=== PATIENT | male | born 1970 | race Two or more races ===

== ENCOUNTER 2020-06-19 01:05 | Inpatient (IN) | payer BC ==
[2020-06-19] VITALS (8 sets, daily range): BP systolic 114–161; BP diastolic 68–79
[~2020-06-19] VITALS: Ht 185.4 cm; Wt 102.0 kg
[2020-06-19] MEDS ORDERED: DEXTROSE 50% 25 GM / 50ML DISP.SYRIN. IV PRN (02:45)
[2020-06-19] MEDS ORDERED: ACETAMINOPHEN 325 MG TABLET. PO PRN (02:45)
[2020-06-19] MEDS ORDERED: 0.9 % SODIUM CHLORIDE 10 ML DISP.SYRIN. IV PRN (02:45)
[2020-06-19] MEDS ORDERED: METF500T16 PO (02:51)
[2020-06-19] MEDS: IV NORMAL SALINE 1000ML BAG 1,000 ML IV SCH ×3 (05:21→20:30)
[2020-06-19 07:00] LABS: BASO % 0 % (0-3); EOS % 0 % (0-3); HEMATOCRIT 43.2 % (39.0-53.0); LYMPH # 1.5 x10^3/uL (1.0-4.8); LYMPH % 27 % (24-48); MEAN CORPUSCULAR HEMOGLOBIN 31 pg (25-35); MEAN CORPUSCULAR HGB CONC 35 g/dL (31-37); MEAN CORPUSCULAR VOLUME 89 fL (79-100); MONO # 0.3 x10^3/uL (0.0-1.1); MONO % 6 % (0-9); NEUT # 3.8 x10^3/uL (1.8-7.7); NEUT % 67 % (31-73); PLATELET COUNT 146 x10^3/uL (140-400); RED BLOOD COUNT 4.85 x10^6/uL (4.30-5.70); RED CELL DISTRIBUTION WIDTH 12.3 % (11.5-14.5); WHITE BLOOD COUNT 5.7 x10^3/uL (4.0-11.0)
[2020-06-19 07:28] LABS: ALBUMIN 3.4 g/dL (3.4-5.0); ALBUMIN/GLOBULIN RATIO 0.8 (1.0-1.7); CALCIUM 8.6 mg/dL (8.5-10.1); GFR 78.8; MAGNESIUM 2.5 mg/dL (1.8-2.4); POTASSIUM 3.9 mmol/L (3.5-5.1); TOTAL BILIRUBIN 0.6 mg/dL (0.2-1.0); TOTAL PROTEIN 7.6 g/dL (6.4-8.2)
[2020-06-19] MEDS: INSULIN LISPRO 300 UNITS/3 ML VIAL. SQ SCH ×5 (07:30→21:00)
[2020-06-19] MEDS: cefTRIAXone IV Push 1 GM VIAL. IVP SCH (09:35)
[2020-06-19] MEDS: AZITHROMYCIN 500 MG in IV NORMAL SALINE 250ML 250 ML IV SCH (09:38)
[2020-06-19] MEDS: DEXAMETHASONE 4 MG TABLET PO SCH (09:38)
--- NOTE | 2020-06-19 14:06 | PDOC1 ---
History and Physical Date of Service: DOS: DATE: 06/19/20 TIME: 14:01 Allergies: Allergies: Coded Allergies: No Known Allergies (Verified Allergy, Unknown, 06/19/20) Current Medications: Current Medications Current Medications Sodium Chloride (Normal Saline Flush) 3 ml QSHIFT PRN IV AFTER MEDS AND BLOOD DRAWS; Start 06/19/20 at 02:45 Sodium Chloride 1,000 ml @ 100 mls/hr Q10H IV Last administered on 06/19/20at 05:21; Start 06/19/20 at 03:00 Acetaminophen (Tylenol) 650 mg PRN Q4HRS PRN PO TEMP OVER 100.4F OR MILD PAIN; Start 06/19/20 at 02:45 Ceftriaxone Sodium (Rocephin) 1 gm Q24H IVP Last administered on 06/19/20at 09:35; Start 06/19/20 at 09:00 Azithromycin 500 mg/Sodium Chloride 250 ml @ 250 mls/hr Q24H IV Last administered on 06/19/20at 09:38; Start 06/19/20 at 09:00 Dexamethasone (Decadron) 8 mg DAILYWBKFT PO Last administered on 06/19/20at 09:38; Start 06/19/20 at 08:00 Insulin Human Lispro (HumaLOG) 0-5 UNITS QIDACHS SQ Last administered on 06/19/20at 13:10; Start 06/19/20 at 07:30 Dextrose (Dextrose 50%-Water Syringe) 12.5 gm PRN Q15MIN PRN IV SEE COMMENTS; Start 06/19/20 at 02:45 Active Scripts Active Reported Metformin Hcl 500 Mg Tablet 500 Mg PO BIDWMEALS ROS: Review of Systems Review of System REVIEW OF SYSTEMS: GENERAL: Denies weakness SKIN: No bruising, hair changes or rashes. EYES: No blurred, double or loss of vision. NOSE AND THROAT: No history of nosebleeds, hoarseness or sore throat. HEART: No history of palpitations, chest pain or shortness of breath on exertion. LUNGS: Denies cough, hemoptysis, wheezing or shortness of breath. GASTROINTESTINAL: Denies changes in appetite, nausea, vomiting, diarrhea or constipation. GENITOURINARY: No history of frequency, urgency, hesitancy or nocturia. NEUROLOGIC: Denies history of numbness, tingling, or tremor. PSYCHIATRIC: No history of panic, anxiety or depression. ENDOCRINE: No history of heat or cold intolerance, polyuria or polydipsia. EXTREMITIES: Denies joint pain, pain on walking or stiffness. Physical Exam: Vital Signs: Vital Signs Date Time Temp Pulse Resp B/P (MAP) Pulse Ox O2 Delivery O2 Flow Rate FiO2 06/19/20 10:47 98.5 94 19 148/72 (97) 95 Nasal Cannula 2.0 98.5 Physcial Exam: GEN: No apparent distress. Alert and oriented HEENT: Normal cephalic, atraumatic, external auditory canals are patent EYES: Extraocular muscles are intact, pupil are equally round and reactive to light and accommodation MUSCULOSKELETAL: Well developed , well nourished, good range of motion ENDOCRINE: No thyromegaly was palpated LYMPHATICS: No cervical chain or axillary nodes were noted HEMATOPOIETIC: No bruising NECK: Supple, no JVD, no thyromegaly was noted LUNGS: Clear to auscultation in all lung pop without rhonchi or wheezing HEART: RRR, S!, S2 present. Peripheral pulses intact, no obvious murmurs noted ABDOMEN: Soft, nontender. Positive bowel sounds, no organomegaly, normal bowel sounds EXTREMITIES: Without clubbing, cyanosis, or edema. Pedal pulses intact. Negative Homans sign NEUROLOGIC: Normal speech and tone. A&O x 3, moves all extremities, no obvious focal deficits PSYCHIATRIC: Normal affect, normal mood. Stable SKIN: No ulcerations or rashes, good skin turgor, no jaundice VASCULAR: Good capillary refill, neurovascular bundle appears to be intact Labs: Labs: Laboratory Tests Test 06/19/20 06:40 06/19/20 08:19 06/19/20 11:22 White Blood Count 5.7 x10^3/uL (4.0-11.0) Red Blood Count 4.85 x10^6/uL (4.30-5.70) Hemoglobin 15.0 g/dL (13.0-17.5) Hematocrit 43.2 % (39.0-53.0) Mean Corpuscular Volume 89 fL (79-100) Mean Corpuscular Hemoglobin 31 pg (25-35) Mean Corpuscular Hemoglobin Concent 35 g/dL (31-37) Red Cell Distribution Width 12.3 % (11.5-14.5) Platelet Count 146 x10^3/uL (140-400) Neutrophils (%) (Auto) 67 % (31-73) Lymphocytes (%) (Auto) 27 % (24-48) Monocytes (%) (Auto) 6 % (0-9) Eosinophils (%) (Auto) 0 % (0-3) Basophils (%) (Auto) 0 % (0-3) Neutrophils # (Auto) 3.8 x10^3/uL (1.8-7.7) Lymphocytes # (Auto) 1.5 x10^3/uL (1.0-4.8) Monocytes # (Auto) 0.3 x10^3/uL (0.0-1.1) Eosinophils # (Auto) 0.0 x10^3/uL (0.0-0.7) Basophils # (Auto) 0.0 x10^3/uL (0.0-0.2) Sodium Level 137 mmol/L (136-145) Potassium Level 3.9 mmol/L (3.5-5.1) Chloride Level 99 mmol/L (98-107) Carbon Dioxide Level 30 mmol/L (21-32) Anion Gap 8 (6-14) Blood Urea Nitrogen 17 mg/dL (8-26) Creatinine 1.0 mg/dL (0.7-1.3) Estimated GFR (Cockcroft-Gault) 78.8 BUN/Creatinine Ratio 17 (6-20) Glucose Level 181 mg/dL (70-99) Calcium Level 8.6 mg/dL (8.5-10.1) Magnesium Level 2.5 mg/dL (1.8-2.4) Total Bilirubin 0.6 mg/dL (0.2-1.0) Aspartate Amino Transf (AST/SGOT) 35 U/L (15-37) Alanine Aminotransferase (ALT/SGPT) 53 U/L (16-63) Alkaline Phosphatase 166 U/L (46-116) Total Protein 7.6 g/dL (6.4-8.2) Albumin 3.4 g/dL (3.4-5.0) Albumin/Globulin Ratio 0.8 (1.0-1.7) Glucose (Fingerstick) 160 mg/dL (70-99) 185 mg/dL (70-99) Laboratory Tests Test 06/19/20 06:40 06/19/20 08:19 06/19/20 11:22 White Blood Count 5.7 x10^3/uL (4.0-11.0) Red Blood Count 4.85 x10^6/uL (4.30-5.70) Hemoglobin 15.0 g/dL (13.0-17.5) Hematocrit 43.2 % (39.0-53.0) Mean Corpuscular Volume 89 fL (79-100) Mean Corpuscular Hemoglobin 31 pg (25-35) Mean Corpuscular Hemoglobin Concent 35 g/dL (31-37) Red Cell Distribution Width 12.3 % (11.5-14.5) Platelet Count 146 x10^3/uL (140-400) Neutrophils (%) (Auto) 67 % (31-73) Lymphocytes (%) (Auto) 27 % (24-48) Monocytes (%) (Auto) 6 % (0-9) Eosinophils (%) (Auto) 0 % (0-3) Basophils (%) (Auto) 0 % (0-3) Neutrophils # (Auto) 3.8 x10^3/uL (1.8-7.7) Lymphocytes # (Auto) 1.5 x10^3/uL (1.0-4.8) Monocytes # (Auto) 0.3 x10^3/uL (0.0-1.1) Eosinophils # (Auto) 0.0 x10^3/uL (0.0-0.7) Basophils # (Auto) 0.0 x10^3/uL (0.0-0.2) Sodium Level 137 mmol/L (136-145) Potassium Level 3.9 mmol/L (3.5-5.1) Chloride Level 99 mmol/L (98-107) Carbon Dioxide Level 30 mmol/L (21-32) Anion Gap 8 (6-14) Blood Urea Nitrogen 17 mg/dL (8-26) Creatinine 1.0 mg/dL (0.7-1.3) Estimated GFR (Cockcroft-Gault) 78.8 BUN/Creatinine Ratio 17 (6-20) Glucose Level 181 mg/dL (70-99) Calcium Level 8.6 mg/dL (8.5-10.1) Magnesium Level 2.5 mg/dL (1.8-2.4) Total Bilirubin 0.6 mg/dL (0.2-1.0) Aspartate Amino Transf (AST/SGOT) 35 U/L (15-37) Alanine Aminotransferase (ALT/SGPT) 53 U/L (16-63) Alkaline Phosphatase 166 U/L (46-116) Total Protein 7.6 g/dL (6.4-8.2) Albumin 3.4 g/dL (3.4-5.0) Albumin/Globulin Ratio 0.8 (1.0-1.7) Glucose (Fingerstick) 160 mg/dL (70-99) 185 mg/dL (70-99) Justifications for Admission Other Justification ELIJAH NAVARRO MD Jun 19, 2020 14:06
--- NOTE | 2020-06-19 14:13 | PDOC1 ---
History and Physical Date of Service: DOS: DATE: 06/19/20 TIME: 14:08 Chief Complaint: Chief Complain: COVID positive and shortness of breath History of Present Illness: HPI: Patient is a 50-year-old male with past medical history of diabetes mellitus who presents with a one-week history of COVID infection that was positive from [facility] last Monday on 06/12/2020. Patient went to [facility] to be evaluated because in the last few days where he remained quarantined he was becoming more lethargic and short of breath. Patient was concerned because he did not have any medical equipment to measure his oxygen saturation therefore he decided to go to the emergency room. After he was evaluated at [place], he was told he was going to be transferred to [facility] because they did not have a COVID unit there. Review of the chart showed that the patient did have labs drawn and CT imaging done. Labs did show elevated d-dimer and a CT scan showing multifocal consolidation concerning for pneumonia versus typical COVID pneumonia presentation. Patient seen and examined bedside upon arrival and he was saturating 94% on 2 L nasal cannula. Patient was not having any shortness of breath or accessory muscle use during my interview. Denies chest pain, abdominal pain, bloody stools, or constipation. Patient did endorse some diarrhea that has resolved a few days ago. Patient also endorses that he did have COVID contact with his sister who was actually recently admitted at [facility] for COVID. Past Medical/Surgical History: PMH/PSH: Diabetes mellitus type 2 Allergies: Allergies: Coded Allergies: No Known Allergies (Verified Allergy, Unknown, 06/19/20) Family History: Family History: Reviewed and none reported Social History: Social History: Denies tobacco, drugs, alcohol abuse. Current Medications: Current Medications Current Medications Sodium Chloride (Normal Saline Flush) 3 ml QSHIFT PRN IV AFTER MEDS AND BLOOD DRAWS; Start 06/19/20 at 02:45 Sodium Chloride 1,000 ml @ 100 mls/hr Q10H IV Last administered on 06/19/20at 05:21; Start 06/19/20 at 03:00 Acetaminophen (Tylenol) 650 mg PRN Q4HRS PRN PO TEMP OVER 100.4F OR MILD PAIN; Start 06/19/20 at 02:45 Ceftriaxone Sodium (Rocephin) 1 gm Q24H IVP Last administered on 06/19/20at 09:35; Start 06/19/20 at 09:00 Azithromycin 500 mg/Sodium Chloride 250 ml @ 250 mls/hr Q24H IV Last administered on 06/19/20at 09:38; Start 06/19/20 at 09:00 Dexamethasone (Decadron) 8 mg DAILYWBKFT PO Last administered on 06/19/20at 09:38; Start 06/19/20 at 08:00 Insulin Human Lispro (HumaLOG) 0-5 UNITS QIDACHS SQ Last administered on 06/19/20at 13:10; Start 06/19/20 at 07:30 Dextrose (Dextrose 50%-Water Syringe) 12.5 gm PRN Q15MIN PRN IV SEE COMMENTS; Start 06/19/20 at 02:45 Active Scripts Active Reported Metformin Hcl 500 Mg Tablet 500 Mg PO BIDWMEALS ROS: Review of Systems Review of System REVIEW OF SYSTEMS: GENERAL: Denies weakness SKIN: No bruising, hair changes or rashes. EYES: No blurred, double or loss of vision. NOSE AND THROAT: No history of nosebleeds, hoarseness or sore throat. HEART: No history of palpitations, chest pain or shortness of breath on exertion. LUNGS: Denies cough, hemoptysis, wheezing or shortness of breath. GASTROINTESTINAL: Denies changes in appetite, nausea, vomiting, diarrhea or constipation. GENITOURINARY: No history of frequency, urgency, hesitancy or nocturia. NEUROLOGIC: Denies history of numbness, tingling, or tremor. PSYCHIATRIC: No history of panic, anxiety or depression. ENDOCRINE: No history of heat or cold intolerance, polyuria or polydipsia. EXTREMITIES: Denies joint pain, pain on walking or stiffness. Physical Exam: Vital Signs: Vital Signs Date Time Temp Pulse Resp B/P (MAP) Pulse Ox O2 Delivery O2 Flow Rate FiO2 06/19/20 10:47 98.5 94 19 148/72 (97) 95 Nasal Cannula 2.0 98.5 Physcial Exam: GEN: No apparent distress. Alert and oriented HEENT: Normal cephalic, atraumatic, external auditory canals are patent EYES: Extraocular muscles are intact, pupil are equally round and reactive to light and accommodation MUSCULOSKELETAL: Well developed , well nourished, good range of motion ENDOCRINE: No thyromegaly was palpated LYMPHATICS: No cervical chain or axillary nodes were noted HEMATOPOIETIC: No bruising NECK: Supple, no JVD, no thyromegaly was noted LUNGS: Clear to auscultation in all lung pop without rhonchi or wheezing HEART: RRR, S!, S2 present. Peripheral pulses intact, no obvious murmurs noted ABDOMEN: Soft, nontender. Positive bowel sounds, no organomegaly, normal bowel sounds EXTREMITIES: Without clubbing, cyanosis, or edema. Pedal pulses intact. Negative Homans sign NEUROLOGIC: Normal speech and tone. A&O x 3, moves all extremities, no obviou s focal deficits PSYCHIATRIC: Normal affect, normal mood. Stable SKIN: No ulcerations or rashes, good skin turgor, no jaundice VASCULAR: Good capillary refill, neurovascular bundle appears to be intact Labs: Labs: Laboratory Tests Test 06/19/20 06:40 06/19/20 08:19 06/19/20 11:22 White Blood Count 5.7 x10^3/uL (4.0-11.0) Red Blood Count 4.85 x10^6/uL (4.30-5.70) Hemoglobin 15.0 g/dL (13.0-17.5) Hematocrit 43.2 % (39.0-53.0) Mean Corpuscular Volume 89 fL (79-100) Mean Corpuscular Hemoglobin 31 pg (25-35) Mean Corpuscular Hemoglobin Concent 35 g/dL (31-37) Red Cell Distribution Width 12.3 % (11.5-14.5) Platelet Count 146 x10^3/uL (140-400) Neutrophils (%) (Auto) 67 % (31-73) Lymphocytes (%) (Auto) 27 % (24-48) Monocytes (%) (Auto) 6 % (0-9) Eosinophils (%) (Auto) 0 % (0-3) Basophils (%) (Auto) 0 % (0-3) Neutrophils # (Auto) 3.8 x10^3/uL (1.8-7.7) Lymphocytes # (Auto) 1.5 x10^3/uL (1.0-4.8) Monocytes # (Auto) 0.3 x10^3/uL (0.0-1.1) Eosinophils # (Auto) 0.0 x10^3/uL (0.0-0.7) Basophils # (Auto) 0.0 x10^3/uL (0.0-0.2) Sodium Level 137 mmol/L (136-145) Potassium Level 3.9 mmol/L (3.5-5.1) Chloride Level 99 mmol/L (98-107) Carbon Dioxide Level 30 mmol/L (21-32) Anion Gap 8 (6-14) Blood Urea Nitrogen 17 mg/dL (8-26) Creatinine 1.0 mg/dL (0.7-1.3) Estimated GFR (Cockcroft-Gault) 78.8 BUN/Creatinine Ratio 17 (6-20) Glucose Level 181 mg/dL (70-99) Calcium Level 8.6 mg/dL (8.5-10.1) Magnesium Level 2.5 mg/dL (1.8-2.4) Total Bilirubin 0.6 mg/dL (0.2-1.0) Aspartate Amino Transf (AST/SGOT) 35 U/L (15-37) Alanine Aminotransferase (ALT/SGPT) 53 U/L (16-63) Alkaline Phosphatase 166 U/L (46-116) Total Protein 7.6 g/dL (6.4-8.2) Albumin 3.4 g/dL (3.4-5.0) Albumin/Globulin Ratio 0.8 (1.0-1.7) Glucose (Fingerstick) 160 mg/dL (70-99) 185 mg/dL (70-99) Laboratory Tests Test 06/19/20 06:40 06/19/20 08:19 06/19/20 11:22 White Blood Count 5.7 x10^3/uL (4.0-11.0) Red Blood Count 4.85 x10^6/uL (4.30-5.70) Hemoglobin 15.0 g/dL (13.0-17.5) Hematocrit 43.2 % (39.0-53.0) Mean Corpuscular Volume 89 fL (79-100) Mean Corpuscular Hemoglobin 31 pg (25-35) Mean Corpuscular Hemoglobin Concent 35 g/dL (31-37) Red Cell Distribution Width 12.3 % (11.5-14.5) Platelet Count 146 x10^3/uL (140-400) Neutrophils (%) (Auto) 67 % (31-73) Lymphocytes (%) (Auto) 27 % (24-48) Monocytes (%) (Auto) 6 % (0-9) Eosinophils (%) (Auto) 0 % (0-3) Basophils (%) (Auto) 0 % (0-3) Neutrophils # (Auto) 3.8 x10^3/uL (1.8-7.7) Lymphocytes # (Auto) 1.5 x10^3/uL (1.0-4.8) Monocytes # (Auto) 0.3 x10^3/uL (0.0-1.1) Eosinophils # (Auto) 0.0 x10^3/uL (0.0-0.7) Basophils # (Auto) 0.0 x10^3/uL (0.0-0.2) Sodium Level 137 mmol/L (136-145) Potassium Level 3.9 mmol/L (3.5-5.1) Chloride Level 99 mmol/L (98-107) Carbon Dioxide Level 30 mmol/L (21-32) Anion Gap 8 (6-14) Blood Urea Nitrogen 17 mg/dL (8-26) Creatinine 1.0 mg/dL (0.7-1.3) Estimated GFR (Cockcroft-Gault) 78.8 BUN/Creatinine Ratio 17 (6-20) Glucose Level 181 mg/dL (70-99) Calcium Level 8.6 mg/dL (8.5-10.1) Magnesium Level 2.5 mg/dL (1.8-2.4) Total Bilirubin 0.6 mg/dL (0.2-1.0) Aspartate Amino Transf (AST/SGOT) 35 U/L (15-37) Alanine Aminotransferase (ALT/SGPT) 53 U/L (16-63) Alkaline Phosphatase 166 U/L (46-116) Total Protein 7.6 g/dL (6.4-8.2) Albumin 3.4 g/dL (3.4-5.0) Albumin/Globulin Ratio 0.8 (1.0-1.7) Glucose (Fingerstick) 160 mg/dL (70-99) 185 mg/dL (70-99) Images: Images All images were reviewed please see paper charts for details Assessment/Plan Assessment/Plan Acute hypoxic respiratory failure COVID positive pneumonia Hypomagnesemia Admit to medicine for further management Continue IV empiric antibiotics ID consult Pulmonology consult Continue IV steroids We will follow math+ protocol for COVID Lovenox for DVT prophylaxis ADA diet Full code Discussed with RN and SW Disposition inpatient care as above Surrogate decision maker is Justifications for Admission Other Justification ELIJAH NAVARRO MD Jun 19, 2020 14:13
--- NOTE | 2020-06-19 17:01 | NUR ---
SW following. Spoke with RN and reviewed chart. Pt from home. Pt currently on 2l 02, IV Zithromax, IV Rocephin, ADA diet. Pt COVID pending so SW called into pt's room but there was no answer. SW unsure if pt has home 02. SW following for discharge planning.
--- NOTE | 2020-06-19 17:27 | PDOC ---
PULMONARY PROGRESS NOTES DATE: 06/19/20 TIME: 17:26 Vitals Vital Signs Date Time Temp Pulse Resp B/P (MAP) Pulse Ox O2 Delivery O2 Flow Rate FiO2 06/19/20 14:39 98.3 91 18 126/77 (93) 92 Nasal Cannula 2.0 98.3 Labs Laboratory Tests Test 06/19/20 06:40 06/19/20 08:19 06/19/20 11:22 06/19/20 16:00 White Blood Count 5.7 x10^3/uL (4.0-11.0) Red Blood Count 4.85 x10^6/uL (4.30-5.70) Hemoglobin 15.0 g/dL (13.0-17.5) Hematocrit 43.2 % (39.0-53.0) Mean Corpuscular Volume 89 fL (79-100) Mean Corpuscular Hemoglobin 31 pg (25-35) Mean Corpuscular Hemoglobin Concent 35 g/dL (31-37) Red Cell Distribution Width 12.3 % (11.5-14.5) Platelet Count 146 x10^3/uL (140-400) Neutrophils (%) (Auto) 67 % (31-73) Lymphocytes (%) (Auto) 27 % (24-48) Monocytes (%) (Auto) 6 % (0-9) Eosinophils (%) (Auto) 0 % (0-3) Basophils (%) (Auto) 0 % (0-3) Neutrophils # (Auto) 3.8 x10^3/uL (1.8-7.7) Lymphocytes # (Auto) 1.5 x10^3/uL (1.0-4.8) Monocytes # (Auto) 0.3 x10^3/uL (0.0-1.1) Eosinophils # (Auto) 0.0 x10^3/uL (0.0-0.7) Basophils # (Auto) 0.0 x10^3/uL (0.0-0.2) Sodium Level 137 mmol/L (136-145) Potassium Level 3.9 mmol/L (3.5-5.1) Chloride Level 99 mmol/L (98-107) Carbon Dioxide Level 30 mmol/L (21-32) Anion Gap 8 (6-14) Blood Urea Nitrogen 17 mg/dL (8-26) Creatinine 1.0 mg/dL (0.7-1.3) Estimated GFR (Cockcroft-Gault) 78.8 BUN/Creatinine Ratio 17 (6-20) Glucose Level 181 mg/dL (70-99) Calcium Level 8.6 mg/dL (8.5-10.1) Magnesium Level 2.5 mg/dL (1.8-2.4) Total Bilirubin 0.6 mg/dL (0.2-1.0) Aspartate Amino Transf (AST/SGOT) 35 U/L (15-37) Alanine Aminotransferase (ALT/SGPT) 53 U/L (16-63) Alkaline Phosphatase 166 U/L (46-116) Total Protein 7.6 g/dL (6.4-8.2) Albumin 3.4 g/dL (3.4-5.0) Albumin/Globulin Ratio 0.8 (1.0-1.7) Glucose (Fingerstick) 160 mg/dL (70-99) 185 mg/dL (70-99) 223 mg/dL (70-99) Laboratory Tests Test 06/19/20 06:40 06/19/20 08:19 06/19/20 11:22 06/19/20 16:00 White Blood Count 5.7 x10^3/uL (4.0-11.0) Red Blood Count 4.85 x10^6/uL (4.30-5.70) Hemoglobin 15.0 g/dL (13.0-17.5) Hematocrit 43.2 % (39.0-53.0) Mean Corpuscular Volume 89 fL (79-100) Mean Corpuscular Hemoglobin 31 pg (25-35) Mean Corpuscular Hemoglobin Concent 35 g/dL (31-37) Red Cell Distribution Width 12.3 % (11.5-14.5) Platelet Count 146 x10^3/uL (140-400) Neutrophils (%) (Auto) 67 % (31-73) Lymphocytes (%) (Auto) 27 % (24-48) Monocytes (%) (Auto) 6 % (0-9) Eosinophils (%) (Auto) 0 % (0-3) Basophils (%) (Auto) 0 % (0-3) Neutrophils # (Auto) 3.8 x10^3/uL (1.8-7.7) Lymphocytes # (Auto) 1.5 x10^3/uL (1.0-4.8) Monocytes # (Auto) 0.3 x10^3/uL (0.0-1.1) Eosinophils # (Auto) 0.0 x10^3/uL (0.0-0.7) Basophils # (Auto) 0.0 x10^3/uL (0.0-0.2) Sodium Level 137 mmol/L (136-145) Potassium Level 3.9 mmol/L (3.5-5.1) Chloride Level 99 mmol/L (98-107) Carbon Dioxide Level 30 mmol/L (21-32) Anion Gap 8 (6-14) Blood Urea Nitrogen 17 mg/dL (8-26) Creatinine 1.0 mg/dL (0.7-1.3) Estimated GFR (Cockcroft-Gault) 78.8 BUN/Creatinine Ratio 17 (6-20) Glucose Level 181 mg/dL (70-99) Calcium Level 8.6 mg/dL (8.5-10.1) Magnesium Level 2.5 mg/dL (1.8-2.4) Total Bilirubin 0.6 mg/dL (0.2-1.0) Aspartate Amino Transf (AST/SGOT) 35 U/L (15-37) Alanine Aminotransferase (ALT/SGPT) 53 U/L (16-63) Alkaline Phosphatase 166 U/L (46-116) Total Protein 7.6 g/dL (6.4-8.2) Albumin 3.4 g/dL (3.4-5.0) Albumin/Globulin Ratio 0.8 (1.0-1.7) Glucose (Fingerstick) 160 mg/dL (70-99) 185 mg/dL (70-99) 223 mg/dL (70-99) Medications Active Scripts Medications Dose Route/Sig Max Daily Dose Days Date Category Metformin Hcl 500 Mg Tablet 500 Mg PO BIDWMEALS 06/19/20 Reported Impression . Full note dictated Hypoxemic respiratory failure secondary to COVID-19 viral pneumonia Add convalescent serum, Remdesivir MARTINE BARRERA MD Jun 19, 2020 17:27
[2020-06-19] MEDS ORDERED: NON FORMULARY ITEM 1 EA in IV NORMAL SALINE 250ML 250 ML IV ONE (18:00)
--- NOTE | 2020-06-19 19:20 | NUR ---
Consults for Dr. Knight & Dr. Lopez called. Remdesivir started, plasma ordered. Patient resting comfortably in bed.
[2020-06-19] MEDS: LACTOBACILLUS RHAMNOSUS GG 1 CAPSULE. PO SCH (20:28)
[2020-06-19] MEDS: ASCORBIC ACID 500 MG TABLET PO SCH (20:28)
[2020-06-19] MEDS: ENOXAPARIN 40 MG/0.4 ML SYRINGE. SQ SCH (20:29)
[2020-06-19] MEDS: THIAMINE INJ 100 MG in IV DEXTROSE 5% 50 ML IV SCH (20:29)
--- NOTE | 2020-06-20 00:06 | CONS ---
DATE OF CONSULTATION: 06/19/2020 ATTENDING PHYSICIAN: Dr. Garcia. DICTATING PHYSICIAN: Martine Knight MD. REASON FOR CONSULTATION: The patient is seen in Pulmonary consultation at the request of Dr. Garcia for COVID-19 viral pneumonia. HISTORY OF PRESENT ILLNESS: The patient is a 50-year-old that was exposed to his sister who had COVID-19. He was tested positive approximately a week ago. Today, he began to be more short of air. He went to [facility] to be evaluated. The patient was transferred here as a result of no beds at [facility]. The patient has been quarantining at home, but he noticed some increasing shortness of breath over the last several days, subjective fever, some night sweats, some myalgias. He has been afebrile since admission. PAST MEDICAL HISTORY: Type 2 diabetes. ALLERGIES: No known drug allergies. FAMILY HISTORY: COVID-19 positive, sister. SOCIAL HISTORY: Denies any tobacco or alcohol. Works at [employer]. REVIEW OF SYSTEMS: As indicated above, otherwise other systems were reviewed and negative. PHYSICAL EXAMINATION: The patient was seen during the COVID-19 pandemic. I personally interviewed him. Physical examination revealed no evidence of paroxysmal breathing pattern. No pedal edema. The patient did not appear to be in any significant distress at this time at 2 liters per nasal cannula. Chest x-ray is pending. LABORATORY DATA: White count was 5.7. Electrolytes were noted. IMPRESSION: 1. COVID-19 viral pneumonia. 2. Type 2 diabetes. 3. Acute hypoxemic respiratory failure. Justification for admission, the patient was quarantining at home, increasingly more short of breath and hypoxic along with some night sweats. He now presents with what appears to be progressive viral pneumonia. PLAN: 1. Continue dexamethasone. 2. Convalescent serum. 3. Remdesivir. 4. Oxygen supplementation. 5. Monitor closely. 6. DVT prophylaxis. 7. Empiric antibiotics. I do appreciate the privilege in sharing in the patient's care. MARTINE KNIGHT MD DR: LOLIS/mani JOB#: [id number] / [id number]
[2020-06-20 02:45] VITALS: BP 126/76
[2020-06-20] MEDS: THIAMINE INJ 100 MG in IV DEXTROSE 5% 50 ML IV SCH ×3 (05:05→20:51)
[2020-06-20 07:00] VITALS: BP 112/57
[2020-06-20] MEDS: LACTOBACILLUS RHAMNOSUS GG 1 CAPSULE. PO SCH ×2 (08:49→20:48)
[2020-06-20] MEDS: ENOXAPARIN 40 MG/0.4 ML SYRINGE. SQ SCH ×2 (08:49→21:00)
[2020-06-20] MEDS: AZITHROMYCIN 500 MG in IV NORMAL SALINE 250ML 250 ML IV SCH (08:50)
[2020-06-20] MEDS: DEXAMETHASONE 4 MG TABLET PO SCH (08:50)
[2020-06-20] MEDS: cefTRIAXone IV Push 1 GM VIAL. IVP SCH (08:50)
[2020-06-20] MEDS: INSULIN LISPRO 300 UNITS/3 ML VIAL. SQ SCH ×4 (08:53→20:53)
[2020-06-20] MEDS: ASCORBIC ACID 500 MG TABLET PO SCH ×3 (08:57→20:50)
[2020-06-20] MEDS: IV NORMAL SALINE 1000ML BAG 1,000 ML IV SCH ×2 (09:00→19:17)
--- NOTE | 2020-06-20 09:01 | PDOC ---
PULMONARY PROGRESS NOTES DATE: 06/20/20 TIME: 08:57 Subjective Pt. reports he is feeling a little better today, Denies any increased SOB or cough Remains on N/C A-febrile overnight No concerns from nursing Vitals Vital Signs Date Time Temp Pulse Resp B/P (MAP) Pulse Ox O2 Delivery O2 Flow Rate FiO2 06/20/20 07:00 98.5 88 20 112/57 (75) 95 Nasal Cannula 2.0 98.5 Comments Pt. seen during ID- pandemic, visual exam preformed on N/C A&0 X3 no rash, no Edema RRR No accessory muscle use ROS: No Nausea, No Chest Pain, No Abdominal Pain, No Increase Cough Labs Laboratory Tests Test 06/19/20 06:40 06/19/20 08:19 06/19/20 11:22 06/19/20 16:00 White Blood Count 5.7 x10^3/uL (4.0-11.0) Red Blood Count 4.85 x10^6/uL (4.30-5.70) Hemoglobin 15.0 g/dL (13.0-17.5) Hematocrit 43.2 % (39.0-53.0) Mean Corpuscular Volume 89 fL (79-100) Mean Corpuscular Hemoglobin 31 pg (25-35) Mean Corpuscular Hemoglobin Concent 35 g/dL (31-37) Red Cell Distribution Width 12.3 % (11.5-14.5) Platelet Count 146 x10^3/uL (140-400) Neutrophils (%) (Auto) 67 % (31-73) Lymphocytes (%) (Auto) 27 % (24-48) Monocytes (%) (Auto) 6 % (0-9) Eosinophils (%) (Auto) 0 % (0-3) Basophils (%) (Auto) 0 % (0-3) Neutrophils # (Auto) 3.8 x10^3/uL (1.8-7.7) Lymphocytes # (Auto) 1.5 x10^3/uL (1.0-4.8) Monocytes # (Auto) 0.3 x10^3/uL (0.0-1.1) Eosinophils # (Auto) 0.0 x10^3/uL (0.0-0.7) Basophils # (Auto) 0.0 x10^3/uL (0.0-0.2) Sodium Level 137 mmol/L (136-145) Potassium Level 3.9 mmol/L (3.5-5.1) Chloride Level 99 mmol/L (98-107) Carbon Dioxide Level 30 mmol/L (21-32) Anion Gap 8 (6-14) Blood Urea Nitrogen 17 mg/dL (8-26) Creatinine 1.0 mg/dL (0.7-1.3) Estimated GFR (Cockcroft-Gault) 78.8 BUN/Creatinine Ratio 17 (6-20) Glucose Level 181 mg/dL (70-99) Calcium Level 8.6 mg/dL (8.5-10.1) Magnesium Level 2.5 mg/dL (1.8-2.4) Total Bilirubin 0.6 mg/dL (0.2-1.0) Aspartate Amino Transf (AST/SGOT) 35 U/L (15-37) Alanine Aminotransferase (ALT/SGPT) 53 U/L (16-63) Alkaline Phosphatase 166 U/L (46-116) Total Protein 7.6 g/dL (6.4-8.2) Albumin 3.4 g/dL (3.4-5.0) Albumin/Globulin Ratio 0.8 (1.0-1.7) Glucose (Fingerstick) 160 mg/dL (70-99) 185 mg/dL (70-99) 223 mg/dL (70-99) Test 06/19/20 20:58 06/20/20 07:18 Glucose (Fingerstick) 246 mg/dL (70-99) 155 mg/dL (70-99) Laboratory Tests Test 06/19/20 11:22 06/19/20 16:00 06/19/20 20:58 06/20/20 07:18 Glucose (Fingerstick) 185 mg/dL (70-99) 223 mg/dL (70-99) 246 mg/dL (70-99) 155 mg/dL (70-99) Medications Active Scripts Medications Dose Route/Sig Max Daily Dose Days Date Category Metformin Hcl 500 Mg Tablet 500 Mg PO BIDWMEALS 06/19/20 Reported Impression . IMPRESSION: 1. COVID-19 viral pneumonia. 2. Type 2 diabetes. 3. Acute hypoxemic respiratory failure. Plan . Continue supplemental oxygen to keep sats above 92% continue dexamethasone S/P Convalescent serum continue full course of Remdesivir Continue empric ABX DVT/GI PPX D/W MARTINE CRISTINA MD Jun 20, 2020 09:01
[2020-06-20] MEDS: NON FORMULARY ITEM 1 EA in IV NORMAL SALINE 250ML 250 ML IV SCH (09:10)
--- NOTE | 2020-06-20 10:34 | PDOC ---
[employer] PROGRESS NOTE Date of Service DOS: DATE: 06/20/20 TIME: 10:32 Chief Complaint Chief Complaint Acute hypoxic respiratory failure COVID positive pneumonia Hypomagnesemia Admit to medicine for further management Continue IV empiric antibiotics ID consult Appreciate pulmonology recommendationscontinue with steroids, plasma, Remdesivir Continue IV steroids We will follow math+ protocol for COVID Lovenox for DVT prophylaxis ADA diet Full code Discussed with RN and SW Disposition inpatient care as above Surrogate decision maker is History of Present Illness History of Present Illness 50-year-old male with past medical history of diabetes mellitus who presents with a one-week history of COVID infection that was positive from [email or web address] last Monday on 06/12/2020. Patient went to [facility] to be evaluated because in the last few days where he remained quarantined he was becoming more lethargic and short of breath. Patient was concerned because he did not have any medical equipment to measure his oxygen saturation therefore he decided to go to the emergency room. After he was evaluated at [facility], he was told he was going to be transferred to [facility] because they did not have a COVID unit there. Review of the chart showed that the patient did have labs drawn and CT imaging done. Labs did show elevated d- dimer and a CT scan showing multifocal consolidation concerning for pneumonia versus typical COVID pneumonia presentation. Patient seen and examined bedside upon arrival and he was saturating 94% on 2 L nasal cannula. Patient was not having any shortness of breath or accessory muscle use during my interview. Denies chest pain, abdominal pain, bloody stools, or constipation. Patient did endorse some diarrhea that has resolved a few days ago. Patient also endorses that he did have COVID contact with his sister who was actually recently admitted at [facility] for COVID. 06/20/2020 No acute events overnight. Patient seen and examined bedside. Patient currently saturating 95% on 2 L nasal cannula. No complaints voiced at this time. Patient's chart, labs, images were reviewed and discussed with RN Vitals/I&O Vitals/I&O: Vital Signs Date Time Temp Pulse Resp B/P (MAP) Pulse Ox O2 Delivery O2 Flow Rate FiO2 06/20/20 07:00 98.5 88 20 112/57 (75) 95 Nasal Cannula 2.0 98.5 I & O 06/19/20 06/19/20 06/20/20 15:00 23:00 07:00 Intake Total 600 ml 100 ml 1200 ml Output Total 800 ml 1400 ml 850 ml Balance -200 ml -1300 ml 350 ml Physical Exam Physical Exam: GEN: No apparent distress. Alert and oriented HEENT: Normal cephalic, atraumatic, external auditory canals are patent NECK: Supple, no JVD, no thyromegaly was noted LUNGS: Bilateral clear HEART: RRR, S1, S2 present. Peripheral pulses intact, no obvious murmurs noted ABDOMEN: Soft, nontender. Positive bowel sounds, no organomegaly, normal bowel sounds EXTREMITIES: Without clubbing, cyanosis, or edema. Pedal pulses intact. Negative Homans sign Labs Labs: Laboratory Tests Test 06/19/20 11:22 06/19/20 16:00 06/19/20 20:58 06/20/20 07:18 Glucose (Fingerstick) 185 mg/dL (70-99) 223 mg/dL (70-99) 246 mg/dL (70-99) 155 mg/dL (70-99) Comment Review of Relevant I have reviewed the following items alyson (where applicable) has been applied. Medications: Current Medications Medications (Trade) Dose Ordered Sig/Samuel Route PRN Reason Start Time Stop Time Status Last Admin Dose Admin Lactobacillus Rhamnosus (Culturelle) 1 cap BID PO 06/19/20 21:00 06/20/20 08:49 Ascorbic Acid (Vitamin C) 3,000 mg TID PO 06/19/20 21:00 06/19/20 20:28 Thiamine HCl 100 mg/Dextrose 51 ml @ 102 mls/hr Q8HRS IV 06/19/20 22:00 06/20/20 05:05 Enoxaparin Sodium (Lovenox 40mg Syringe) 40 mg BID SQ 06/19/20 21:00 06/20/20 08:49 Non-Formulary Medication 1 ea/ Sodium Chloride 250 ml @ 500 mls/hr 1X ONCE IV 06/19/20 18:00 06/19/20 18:29 DC 06/19/20 18:00 Non-Formulary Medication 1 ea/ Sodium Chloride 250 ml @ 500 mls/hr DAILY IV 06/20/20 09:00 06/23/20 09:29 06/20/20 09:10 Justifications for Admission Other Justification ELIJAH NAVARRO MD Jun 20, 2020 10:34
[2020-06-20 11:01] VITALS: BP 109/56
[2020-06-20 14:47] VITALS: BP 115/72
--- NOTE | 2020-06-20 16:07 | CONS ---
DATE OF CONSULTATION: 06/19/2020 REFERRING PHYSICIAN: Dr. Garcia. REASON FOR CONSULTATION: COVID-19 infection. HISTORY OF PRESENT ILLNESS: A 58-year-old male who presented to the ER with complaints of shortness of breath, worsening cough. He had a COVID test done at [facility] last Monday, which was positive. The patient quarantined himself, but since his shortness of breath and cough started getting worse, he was evaluated in [place] and was told that he was going to be transferred to [facility] because they did not have a COVID unit there. The patient also had some nausea and vomiting. White count was 5.7, lymphocyte count was 27. Alk phos was elevated. He underwent CT imaging, which showed multifocal pulmonary infiltrates. The patient was requiring 2 liters of O2 by nasal cannula. He was started on plasma and remdesivir. ID consult has been requested for antibiotic management. He was also started on ceftriaxone and azithromycin. Pulmonary was consulted. He is on steroids currently. This morning he feels a little better. Denies any fevers, chills, nausea, vomiting, diarrhea, abdominal pain, symptoms. Denies any rash. He had COVID contact with his sister who was recently discharged from [facility]. His and son are negative for COVID at this time. PAST MEDICAL HISTORY: Diabetes. ALLERGIES: No known drug allergies. SOCIAL HISTORY: Denies smoking, ETOH, or illicit drug use. 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 , lives with . FAMILY HISTORY: As per HPI. CURRENT MEDICATIONS: Ceftriaxone, azithromycin, dexamethasone, remdesivir, plasma. REVIEW OF SYSTEMS: Negative except for above in HPI. PHYSICAL EXAMINATION: VITAL SIGNS: Temperature 98.5, pulse 88, respiratory rate 24, blood pressure 161/79, oxygen saturation 94% on 2 liters by nasal cannula. GENERAL: Alert and oriented x 3, pleasant male in no acute distress, on O2 by nasal cannula. HEENT: Normocephalic, atraumatic, anicteric. NECK: Supple, no JVD. LUNGS: Clear bilaterally. No wheezing. HEART: S1, S2. No gallops or murmurs. ABDOMEN: Soft, nontender, nondistended. EXTREMITIES: No edema, no cyanosis. DERMATOLOGIC: Warm and dry. No generalized rash. NEUROLOGIC: Alert and oriented x 3, grossly nonfocal. PSYCHIATRIC: Cooperative, appropriate mood and affect. LABORATORY DATA: WBC 5.7, hemoglobin 15, hematocrit 43.2, platelets 146. Sodium 137, potassium 3.9, chloride 99, bicarb 30, BUN 17, creatinine 1.0, glucose 181, magnesium 2.5, calcium 8.6. Total bilirubin 0.6, AST 35, ALT 53, alk phos 166, total protein 7.6, albumin 3.4. RADIOLOGY: CT done at outside hospital report reviewed. IMPRESSION: 1. COVID-19 infection POA. 2. Acute hypoxic respiratory failure. 3. Diabetes. 4. Nausea and vomiting and diarrhea, resolved. RECOMMENDATIONS: 1. Continue empiric IV ceftriaxone and azithromycin. 2. Status post plasma 06/19. 3. Started on remdesivir 06/19. 4. Continue supportive care. 5. On steroids. 6. Follow up labs and cultures. Discussed with RN. Thank you for allowing me to participate in this patient's care. If you have any questions, do not hesitate to contact me. AUSTIN ZIMMERMAN MD DR: NAVEEN/mani JOB#: [id number] / [id number] LARISA
[2020-06-20 19:00] VITALS: BP 116/70
[2020-06-20 23:00] VITALS: BP 188/86
[2020-06-21 03:00] VITALS: BP 127/78
[2020-06-21] MEDS: IV NORMAL SALINE 1000ML BAG 1,000 ML IV SCH ×2 (05:26→21:16)
[2020-06-21] MEDS: THIAMINE INJ 100 MG in IV DEXTROSE 5% 50 ML IV SCH ×3 (05:36→21:17)
[2020-06-21 07:15] VITALS: BP 114/67
[2020-06-21] MEDS: INSULIN LISPRO 300 UNITS/3 ML VIAL. SQ SCH ×4 (07:30→21:53)
[2020-06-21] MEDS: ASCORBIC ACID 500 MG TABLET PO SCH ×3 (09:00→21:38)
[2020-06-21] MEDS: LACTOBACILLUS RHAMNOSUS GG 1 CAPSULE. PO SCH ×2 (09:44→21:15)
[2020-06-21] MEDS: ENOXAPARIN 40 MG/0.4 ML SYRINGE. SQ SCH ×2 (09:44→21:15)
[2020-06-21] MEDS: AZITHROMYCIN 500 MG in IV NORMAL SALINE 250ML 250 ML IV SCH (09:45)
[2020-06-21] MEDS: DEXAMETHASONE 4 MG TABLET PO SCH (09:45)
[2020-06-21] MEDS: cefTRIAXone IV Push 1 GM VIAL. IVP SCH (09:46)
[2020-06-21] MEDS: NON FORMULARY ITEM 1 EA in IV NORMAL SALINE 250ML 250 ML IV SCH (09:49)
--- NOTE | 2020-06-21 09:52 | PDOC ---
PULMONARY PROGRESS NOTES DATE: 06/21/20 TIME: 09:51 Subjective Denies any shortness of breath reports mild nonproductive cough Remains on N/C --2 L A-febrile overnight No concerns from nursing Vitals Vital Signs Date Time Temp Pulse Resp B/P (MAP) Pulse Ox O2 Delivery O2 Flow Rate FiO2 06/21/20 07:15 97.3 72 18 114/67 (83) 92 Nasal Cannula 2.0 97.3 Comments Pt. seen during COVID- pandemic, visual exam preformed on N/C A&0 X3 no rash, no Edema RRR No accessory muscle use ROS: No Nausea, No Chest Pain, No Abdominal Pain, No Increase Cough Labs Laboratory Tests Test 06/19/20 11:22 06/19/20 16:00 06/19/20 20:58 06/20/20 07:18 Glucose (Fingerstick) 185 mg/dL (70-99) 223 mg/dL (70-99) 246 mg/dL (70-99) 155 mg/dL (70-99) Test 06/20/20 10:22 06/20/20 16:09 06/20/20 20:01 06/21/20 07:47 Glucose (Fingerstick) 215 mg/dL (70-99) 259 mg/dL (70-99) 222 mg/dL (70-99) 142 mg/dL (70-99) Laboratory Tests Test 06/20/20 10:22 06/20/20 16:09 06/20/20 20:01 06/21/20 07:47 Glucose (Fingerstick) 215 mg/dL (70-99) 259 mg/dL (70-99) 222 mg/dL (70-99) 142 mg/dL (70-99) Medications Active Scripts Medications Dose Route/Sig Max Daily Dose Days Date Category Metformin Hcl 500 Mg Tablet 500 Mg PO BIDWMEALS 06/19/20 Reported Impression . IMPRESSION: 1. COVID-19 viral pneumonia. 2. Type 2 diabetes. 3. Acute hypoxemic respiratory failure. Plan . Continue supplemental oxygen to keep sats above 92% continue dexamethasone S/P Convalescent serum continue full course of Remdesivir Continue empric ABX per ID DVT/GI PPX:pepcid lovenox D/W MARTINE CRISTINA MD Jun 21, 2020 09:52
--- NOTE | 2020-06-21 10:32 | PDOC ---
Infectious Disease Note Subjective: Subjective Patient without complaints As of breath and cough are improved Denies fever, chest pain ,nausea, vomiting, diarrhea, abdominal pain, rash Otherwise as above Vital Signs: Vital Signs Vital Signs Date Time Temp Pulse Resp B/P (MAP) Pulse Ox O2 Delivery O2 Flow Rate FiO2 06/21/20 08:00 Room Air 2.0 06/21/20 07:15 97.3 72 18 114/67 (83) 92 97.3 Physical Exam: PHYSICAL EXAM GENERAL: Alert and oriented x 3, pleasant male in no acute distress, on O2 by nasal cannula. HEENT: Normocephalic, atraumatic, anicteric. NECK: Supple, no JVD. LUNGS: Clear bilaterally. No wheezing. HEART: S1, S2. No gallops or murmurs. ABDOMEN: Soft, nontender, nondistended. EXTREMITIES: No edema, no cyanosis. DERMATOLOGIC: Warm and dry. No generalized rash. NEUROLOGIC: Alert and oriented x 3, grossly nonfocal. PSYCHIATRIC: Cooperative, appropriate mood and affect. Medications: Inpatient Meds: Current Medications Medications (Trade) Dose Ordered Sig/Samuel Start Time Stop Time Status Last Admin Dose Admin Acetaminophen (Tylenol) 650 mg PRN Q4HRS PRN 06/19/20 02:45 06/20/20 05:13 650 MG Ascorbic Acid (Vitamin C) 3,000 mg TID 06/19/20 21:00 06/20/20 20:50 3,000 MG Azithromycin 500 mg/Sodium Chloride 250 ml @ 250 mls/hr Q24H 06/19/20 09:00 06/21/20 09:45 250 MLS/HR Ceftriaxone Sodium (Rocephin) 1 gm Q24H 06/19/20 09:00 06/21/20 09:46 1 GM Dexamethasone (Decadron) 8 mg [id number] 06/19/20 08:00 06/21/20 09:45 8 MG Dextrose (Dextrose 50%-Water Syringe) 12.5 gm PRN Q15MIN PRN 06/19/20 02:45 Enoxaparin Sodium (Lovenox 40mg Syringe) 40 mg BID 06/19/20 21:00 06/21/20 09:44 40 MG Famotidine (Pepcid) 20 mg BID 06/21/20 10:00 Insulin Human Lispro (HumaLOG) 0-5 UNITS QIDACHS 06/19/20 07:30 06/20/20 16:52 4 UNITS Lactobacillus Rhamnosus (Culturelle) 1 cap BID 06/19/20 21:00 06/21/20 09:44 1 CAP Non-Formulary Medication 1 ea/ Sodium Chloride 250 ml @ 500 mls/hr DAILY 06/20/20 09:00 06/23/20 09:29 06/21/20 09:49 500 MLS/HR Sodium Chloride 1,000 ml @ 100 mls/hr Q10H 06/19/20 03:00 06/21/20 05:26 100 MLS/HR Sodium Chloride (Normal Saline Flush) 3 ml QSHIFT PRN 06/19/20 02:45 Thiamine HCl 100 mg/Dextrose 51 ml @ 102 mls/hr Q8HRS 06/19/20 22:00 06/21/20 05:36 102 MLS/HR Labs: Lab Laboratory Tests Test 06/20/20 16:09 06/20/20 20:01 06/21/20 07:47 Glucose (Fingerstick) 259 mg/dL (70-99) 222 mg/dL (70-99) 142 mg/dL (70-99) Objective: Assessment: 1. COVID-19 infection POA. 2. Acute hypoxic respiratory failure. 3. Diabetes. 4. Nausea and vomiting and diarrhea, resolved. Plan: Plan of Care Continue supportive care Status post plasma June 19 on Remdesivir June 19 Continue IV ceftriaxone and azithromycin. On steroids. Follow up labs and cultures. Discussed with ARIAS. AUSTIN ZIMMERMAN MD Jun 21, 2020 10:32
--- NOTE | 2020-06-21 10:42 | PDOC ---
[employer] PROGRESS NOTE Date of Service DOS: DATE: 06/21/20 TIME: 10:41 Chief Complaint Chief Complaint Acute hypoxic respiratory failure COVID positive pneumonia Hypomagnesemia Admit to medicine for further management Continue IV empiric antibiotics ID consult Appreciate pulmonology recommendationscontinue with steroids, plasma, Remdesivir Continue IV steroids We will follow math+ protocol for COVID Lovenox for DVT prophylaxis ADA diet Full code Discussed with RN and SW Disposition inpatient care as above and anticipate discharge within the next 24 to 48 hours Surrogate decision maker is History of Present Illness History of Present Illness 50-year-old male with past medical history of diabetes mellitus who presents with a one-week history of COVID infection that was positive from [facility] last Monday on 06/12/2020. Patient went to [facility] to be evaluated because in the last few days where he remained quarantined he was becoming more lethargic and short of breath. Patient was concerned because he did not have any medical equipment to measure his oxygen saturation therefore he decided to go to the emergency room. After he was evaluated at [place], he was told he was going to be transferred to [facility] because they did not have a COVID unit there. Review of the chart showed that the patient did have labs drawn and CT imaging done. Labs did show elevated d- dimer and a CT scan showing multifocal consolidation concerning for pneumonia versus typical COVID pneumonia presentation. Patient seen and examined bedside upon arrival and he was saturating 94% on 2 L nasal cannula. Patient was not having any shortness of breath or accessory muscle use during my interview. Denies chest pain, abdominal pain, bloody stools, or constipation. Patient did endorse some diarrhea that has resolved a few days ago. Patient also endorses that he did have COVID contact with his sister who was actually recently admitted at [facility] for COVID. 06/20/2020 No acute events overnight. Patient seen and examined bedside. Patient currently saturating 95% on 2 L nasal cannula. No complaints voiced at this time. Patient's chart, labs, images were reviewed and discussed with RN 06/21/2020 No acute events overnight. Patient seen and examined bedside. Patient is currently saturating 93 to 95% on room air. Patient feels better and has bit more energy. No respiratory symptoms at this time. Follow-up Vitals/I&O Vitals/I&O: Vital Signs Date Time Temp Pulse Resp B/P (MAP) Pulse Ox O2 Delivery O2 Flow Rate FiO2 06/21/20 08:00 Room Air 2.0 06/21/20 07:15 97.3 72 18 114/67 (83) 92 97.3 I & O 06/20/20 06/20/20 06/21/20 15:00 23:00 07:00 Intake Total 500 ml 660 ml 1450 ml Output Total 2450 ml 450 ml 1500 ml Balance -1950 ml 210 ml -50 ml Physical Exam Physical Exam: GENERAL: Alert and oriented x 3, pleasant male in no acute distress, on O2 by nasal cannula. HEENT: Normocephalic, atraumatic, anicteric. NECK: Supple, no JVD. LUNGS: Clear bilaterally. No wheezing. HEART: S1, S2. No gallops or murmurs. ABDOMEN: Soft, nontender, nondistended. EXTREMITIES: No edema, no cyanosis. DERMATOLOGIC: Warm and dry. No generalized rash. NEUROLOGIC: Alert and oriented x 3, grossly nonfocal. PSYCHIATRIC: Cooperative, appropriate mood and affect. Labs Labs: Laboratory Tests Test 06/20/20 16:09 06/20/20 20:01 06/21/20 07:47 Glucose (Fingerstick) 259 mg/dL (70-99) 222 mg/dL (70-99) 142 mg/dL (70-99) Comment Review of Relevant I have reviewed the following items alyson (where applicable) has been applied. Justifications for Admission Other Justification ELIJAH NAVARRO MD Jun 21, 2020 10:42
[2020-06-21 11:16] VITALS: BP 126/75
[2020-06-21] MEDS: FAMOTIDINE 20 MG TABLET. PO SCH ×2 (11:58→21:15)
[2020-06-21 15:01] VITALS: BP 140/79
[2020-06-21 19:00] VITALS: BP 136/72
[2020-06-21 23:00] VITALS: BP 117/59
[2020-06-22 03:00] VITALS: BP 126/59
[2020-06-22] MEDS: THIAMINE INJ 100 MG in IV DEXTROSE 5% 50 ML IV SCH ×3 (06:34→21:34)
[2020-06-22 07:22] VITALS: BP 117/64
[2020-06-22] MEDS: INSULIN LISPRO 300 UNITS/3 ML VIAL. SQ SCH ×4 (07:30→21:00)
[2020-06-22] MEDS: LACTOBACILLUS RHAMNOSUS GG 1 CAPSULE. PO SCH ×2 (08:07→21:34)
[2020-06-22] MEDS: ENOXAPARIN 40 MG/0.4 ML SYRINGE. SQ SCH ×2 (08:08→21:35)
[2020-06-22] MEDS: cefTRIAXone IV Push 1 GM VIAL. IVP SCH (08:08)
[2020-06-22] MEDS: FAMOTIDINE 20 MG TABLET. PO SCH ×2 (08:08→21:34)
[2020-06-22] MEDS: DEXAMETHASONE 4 MG TABLET PO SCH (08:08)
[2020-06-22] MEDS: NON FORMULARY ITEM 1 EA in IV NORMAL SALINE 250ML 250 ML IV SCH (09:12)
[2020-06-22] MEDS: AZITHROMYCIN 500 MG in IV NORMAL SALINE 250ML 250 ML IV SCH (10:34)
--- NOTE | 2020-06-22 10:40 | PDOC ---
Infectious Disease Note Subjective Subjective Patient without complaints As of breath and cough are improved Denies fever, chest pain ,nausea, vomiting, diarrhea, abdominal pain, rash Otherwise as above Vital Sign Vital Signs Vital Signs Date Time Temp Pulse Resp B/P (MAP) Pulse Ox O2 Delivery O2 Flow Rate FiO2 06/22/20 08:00 Nasal Cannula 3.0 06/22/20 07:22 97.9 69 16 117/64 (81) 98 97.9 Physical Exam PHYSICAL EXAM GENERAL: Alert and oriented x 3, pleasant male in no acute distress, on O2 by nasal cannula. HEENT: Normocephalic, atraumatic, anicteric. NECK: Supple, no JVD. LUNGS: Clear bilaterally. No wheezing. HEART: S1, S2. No gallops or murmurs. ABDOMEN: Soft, nontender, nondistended. EXTREMITIES: No edema, no cyanosis. DERMATOLOGIC: Warm and dry. No generalized rash. NEUROLOGIC: Alert and oriented x 3, grossly nonfocal. PSYCHIATRIC: Cooperative, appropriate mood and affect. Labs Lab Laboratory Tests Test 06/21/20 10:52 06/21/20 16:18 06/21/20 19:48 06/22/20 07:35 Glucose (Fingerstick) 191 mg/dL (70-99) 253 mg/dL (70-99) 292 mg/dL (70-99) 124 mg/dL (70-99) Objective Assessment 1. COVID-19 infection POA. 2. Acute hypoxic respiratory failure. 3. Diabetes. 4. Nausea and vomiting and diarrhea, resolved. Plan Plan of Care Continue supportive care Status post plasma June 19 on Remdesivir June 19 d/c IV ceftriaxone and azithromycin. On steroids. Follow up labs and cultures. Discussed with RN. soon to d/c home LAMONT ZIMMERMAN MD Jun 22, 2020 10:40
[2020-06-22] MEDS: ASCORBIC ACID 500 MG TABLET PO SCH ×3 (10:47→21:34)
[2020-06-22] MEDS: IV NORMAL SALINE 1000ML BAG 1,000 ML IV SCH ×2 (11:00→21:34)
[2020-06-22 11:03] VITALS: BP 120/64
--- NOTE | 2020-06-22 11:56 | PDOC ---
[employer] PROGRESS NOTE Date of Service DOS: DATE: 06/22/20 TIME: 11:53 Chief Complaint Chief Complaint Acute hypoxic respiratory failure COVID positive pneumonia Hypomagnesemia Admit to medicine for further management Continue IV empiric antibiotics ID consult Appreciate pulmonology recommendationscontinue with steroids, plasma, Remdesivir Continue IV steroids We will follow math+ protocol for COVID Lovenox for DVT prophylaxis ADA diet Full code Discussed with RN and SW Disposition inpatient care as above and anticipate discharge within the next 24 to 48 hours Surrogate decision maker is History of Present Illness History of Present Illness 50-year-old male with past medical history of diabetes mellitus who presents with a one-week history of COVID infection that was positive from [facility] last Monday on 06/12/2020. Patient went to [facility] to be evaluated because in the last few days where he remained quarantined he was becoming more lethargic and short of breath. Patient was concerned because he did not have any medical equipment to measure his oxygen saturation therefore he decided to go to the emergency room. After he was evaluated at [place], he was told he was going to be transferred to [facility] because they did not have a COVID unit there. Review of the chart showed that the patient did have labs drawn and CT imaging done. Labs did show elevated d- dimer and a CT scan showing multifocal consolidation concerning for pneumonia versus typical COVID pneumonia presentation. Patient seen and examined bedside upon arrival and he was saturating 94% on 2 L nasal cannula. Patient was not having any shortness of breath or accessory muscle use during my interview. Denies chest pain, abdominal pain, bloody stools, or constipation. Patient did endorse some diarrhea that has resolved a few days ago. Patient also endorses that he did have COVID contact with his sister who was actually recently admitted at [facility] for COVID. 06/20/2020 No acute events overnight. Patient seen and examined bedside. Patient currently saturating 95% on 2 L nasal cannula. No complaints voiced at this time. Patient's chart, labs, images were reviewed and discussed with RN 06/21/2020 No acute events overnight. Patient seen and examined bedside. Patient is currently saturating 93 to 95% on room air. Patient feels better and has bit more energy. No respiratory symptoms at this time. Follow-up 06/22/2020 Patient seen and examined at bedside. No acute events overnight. He is breathing comfortably on 2 L nasal cannula. Continuing Remdesivir for COVID-19. Discussed with RN. Vitals/I&O Vitals/I&O: Vital Signs Date Time Temp Pulse Resp B/P (MAP) Pulse Ox O2 Delivery O2 Flow Rate FiO2 06/22/20 11:03 98.1 72 18 120/64 (82) 95 Nasal Cannula 2.0 98.1 I & O 06/21/20 06/21/20 06/22/20 15:00 23:00 07:00 Intake Total 630 ml 300 ml Output Total 1150 ml 2800 ml 1000 ml Balance -520 ml -2500 ml -1000 ml Physical Exam Physical Exam: GENERAL: Alert and oriented x 3, pleasant male in no acute distress, on O2 by nasal cannula. HEENT: Normocephalic, atraumatic, anicteric. NECK: Supple, no JVD. LUNGS: Clear bilaterally. No wheezing. HEART: S1, S2. No gallops or murmurs. ABDOMEN: Soft, nontender, nondistended. EXTREMITIES: No edema, no cyanosis. DERMATOLOGIC: Warm and dry. No generalized rash. NEUROLOGIC: Alert and oriented x 3, grossly nonfocal. PSYCHIATRIC: Cooperative, appropriate mood and affect. Labs Labs: Laboratory Tests Test 06/21/20 16:18 06/21/20 19:48 06/22/20 07:35 06/22/20 10:21 Glucose (Fingerstick) 253 mg/dL (70-99) 292 mg/dL (70-99) 124 mg/dL (70-99) 166 mg/dL (70-99) Review of Systems Review of Systems: Denies chest pain, denies nausea, denies vomiting, denies fever. Assessment and Plan Problems: (1) COVID-19 (2) Respiratory failure with hypoxia Comment Review of Relevant I have reviewed the following items alyson (where applicable) has been applied. Justifications for Admission Other Justification JACKELYN STARKEY MD Jun 22, 2020 11:56
[2020-06-22 15:05] VITALS: BP 131/77
--- NOTE | 2020-06-22 15:07 | PDOC ---
PULMONARY PROGRESS NOTES DATE: 06/22/20 TIME: 15:06 Subjective Denies any shortness of breath reports mild nonproductive cough Remains on N/C --2 L A-febrile overnight No concerns from nursing Vitals Vital Signs Date Time Temp Pulse Resp B/P (MAP) Pulse Ox O2 Delivery O2 Flow Rate FiO2 06/22/20 15:05 97.8 71 18 131/77 (95) 93 Nasal Cannula 2.0 97.8 Comments Pt. seen during ID pandemic, visual exam preformed on N/C A&0 X3 no rash, no Edema RRR No accessory muscle use ROS: No Nausea, No Chest Pain, No Abdominal Pain, No Increase Cough Labs Laboratory Tests Test 06/20/20 16:09 06/20/20 20:01 06/21/20 07:47 06/21/20 10:52 Glucose (Fingerstick) 259 mg/dL (70-99) 222 mg/dL (70-99) 142 mg/dL (70-99) 191 mg/dL (70-99) Test 06/21/20 16:18 06/21/20 19:48 06/22/20 07:35 06/22/20 10:21 Glucose (Fingerstick) 253 mg/dL (70-99) 292 mg/dL (70-99) 124 mg/dL (70-99) 166 mg/dL (70-99) Laboratory Tests Test 06/21/20 16:18 06/21/20 19:48 06/22/20 07:35 06/22/20 10:21 Glucose (Fingerstick) 253 mg/dL (70-99) 292 mg/dL (70-99) 124 mg/dL (70-99) 166 mg/dL (70-99) Medications Active Scripts Medications Dose Route/Sig Max Daily Dose Days Date Category Metformin Hcl 500 Mg Tablet 500 Mg PO BIDWMEALS 06/19/20 Reported Impression . IMPRESSION: 1. COVID-19 viral pneumonia. 2. Type 2 diabetes. 3. Acute hypoxemic respiratory failure. Plan . Patient improving, recommend completing 5-day course Remdesivir than discharge, case discussed with hospitalist Continue supplemental oxygen to keep sats above 92% continue dexamethasone S/P Convalescent serum continue full course of Remdesivir Continue empric ABX per ID DVT/GI PPX:pepcid lovenox D/W ARIAS BARRERA,SABATO MD Jun 22, 2020 15:07
--- NOTE | 2020-06-22 16:53 | NUR ---
SW following. Spoke with RN and reviewed chart. Pt from home with . Pt remains on 2l 02. Pt is off of IV abx. Pt COVID positive. SW called in and spoke with pt who stated no concerns about returning home at discharge. Pt stated he does not have home 02 and does not anticipate needing 02 at discharge. SW following.
[2020-06-22 19:43] VITALS: BP 115/69
[2020-06-22 23:59] VITALS: BP 113/66
[2020-06-23 03:59] VITALS: BP 105/66
[2020-06-23] MEDS: THIAMINE INJ 100 MG in IV DEXTROSE 5% 50 ML IV SCH ×2 (05:16→14:45)
[2020-06-23 05:27] LABS: BASO % 1 % (0-3); EOS % 0 % (0-3); HEMATOCRIT 40.3 % (39.0-53.0); HEMOGLOBIN 14.2 g/dL (13.0-17.5); LYMPH % 34 % (24-48); MEAN CORPUSCULAR HEMOGLOBIN 31 pg (25-35); MEAN CORPUSCULAR HGB CONC 35 g/dL (31-37); MEAN CORPUSCULAR VOLUME 89 fL (79-100); MONO # 0.4 x10^3/uL (0.0-1.1); MONO % 8 % (0-9); NEUT # 3.4 x10^3/uL (1.8-7.7); NEUT % 58 % (31-73); PLATELET COUNT 215 x10^3/uL (140-400); RED BLOOD COUNT 4.54 x10^6/uL (4.30-5.70); RED CELL DISTRIBUTION WIDTH 12.6 % (11.5-14.5); WHITE BLOOD COUNT 5.9 x10^3/uL (4.0-11.0)
[2020-06-23 05:52] LABS: CALCIUM 8.4 mg/dL (8.5-10.1); CREATININE 0.8 mg/dL (0.7-1.3); GFR 101.9; POTASSIUM 3.2 mmol/L (3.5-5.1)
[2020-06-23 06:07] LABS: MAGNESIUM 2.2 mg/dL (1.8-2.4)
[2020-06-23 07:10] VITALS: BP 115/68
[2020-06-23] MEDS: INSULIN LISPRO 300 UNITS/3 ML VIAL. SQ SCH ×2 (07:30→11:58)
[2020-06-23] MEDS: IV NORMAL SALINE 1000ML BAG 1,000 ML IV SCH (08:50)
[2020-06-23] MEDS: LACTOBACILLUS RHAMNOSUS GG 1 CAPSULE. PO SCH (08:51)
[2020-06-23] MEDS: FAMOTIDINE 20 MG TABLET. PO SCH (08:51)
[2020-06-23] MEDS: ASCORBIC ACID 500 MG TABLET PO SCH ×2 (08:51→14:45)
[2020-06-23] MEDS: DEXAMETHASONE 4 MG TABLET PO SCH (08:51)
[2020-06-23] MEDS: ENOXAPARIN 40 MG/0.4 ML SYRINGE. SQ SCH (08:52)
[2020-06-23] MEDS: NON FORMULARY ITEM 1 EA in IV NORMAL SALINE 250ML 250 ML IV SCH (09:59)
--- NOTE | 2020-06-23 10:49 | PDOC ---
Infectious Disease Note Subjective Subjective Patient without complaints As of breath and cough are improved Denies fever, chest pain ,nausea, vomiting, diarrhea, abdominal pain, rash Otherwise as above Vital Sign Vital Signs Vital Signs Date Time Temp Pulse Resp B/P (MAP) Pulse Ox O2 Delivery O2 Flow Rate FiO2 06/23/20 07:10 98.3 68 24 115/68 (84) Nasal Cannula 2.0 98.3 06/22/20 15:05 93 Physical Exam PHYSICAL EXAM GENERAL: Alert and oriented x 3, pleasant male in no acute distress, on O2 by nasal cannula. HEENT: Normocephalic, atraumatic, anicteric. NECK: Supple, no JVD. LUNGS: Clear bilaterally. No wheezing. HEART: S1, S2. No gallops or murmurs. ABDOMEN: Soft, nontender, nondistended. EXTREMITIES: No edema, no cyanosis. DERMATOLOGIC: Warm and dry. No generalized rash. NEUROLOGIC: Alert and oriented x 3, grossly nonfocal. PSYCHIATRIC: Cooperative, appropriate mood and affect. Labs Lab Laboratory Tests Test 06/22/20 16:19 06/22/20 21:17 06/23/20 04:25 06/23/20 07:20 Glucose (Fingerstick) 271 mg/dL (70-99) 218 mg/dL (70-99) 106 mg/dL (70-99) White Blood Count 5.9 x10^3/uL (4.0-11.0) Red Blood Count 4.54 x10^6/uL (4.30-5.70) Hemoglobin 14.2 g/dL (13.0-17.5) Hematocrit 40.3 % (39.0-53.0) Mean Corpuscular Volume 89 fL (79-100) Mean Corpuscular Hemoglobin 31 pg (25-35) Mean Corpuscular Hemoglobin Concent 35 g/dL (31-37) Red Cell Distribution Width 12.6 % (11.5-14.5) Platelet Count 215 x10^3/uL (140-400) Neutrophils (%) (Auto) 58 % (31-73) Lymphocytes (%) (Auto) 34 % (24-48) Monocytes (%) (Auto) 8 % (0-9) Eosinophils (%) (Auto) 0 % (0-3) Basophils (%) (Auto) 1 % (0-3) Neutrophils # (Auto) 3.4 x10^3/uL (1.8-7.7) Lymphocytes # (Auto) 2.0 x10^3/uL (1.0-4.8) Monocytes # (Auto) 0.4 x10^3/uL (0.0-1.1) Eosinophils # (Auto) 0.0 x10^3/uL (0.0-0.7) Basophils # (Auto) 0.0 x10^3/uL (0.0-0.2) D-Dimer (Jessy) 0.32 ug/mlFEU (0.00-0.50) Sodium Level 139 mmol/L (136-145) Potassium Level 3.2 mmol/L (3.5-5.1) Chloride Level 103 mmol/L (98-107) Carbon Dioxide Level 27 mmol/L (21-32) Anion Gap 9 (6-14) Blood Urea Nitrogen 16 mg/dL (8-26) Creatinine 0.8 mg/dL (0.7-1.3) Estimated GFR (Cockcroft-Gault) 101.9 Glucose Level 124 mg/dL (70-99) Calcium Level 8.4 mg/dL (8.5-10.1) Magnesium Level 2.2 mg/dL (1.8-2.4) Ferritin 692 ng/mL (26-388) Lactate Dehydrogenase 180 U/L (85-227) Creatine Kinase 38 U/L (39-308) OD-Qnq-V-Type Natriuretic Peptide 148 pg/mL (0-124) Objective Assessment 1. COVID-19 infection POA. 2. Acute hypoxic respiratory failure. 3. Diabetes. 4. Nausea and vomiting and diarrhea, resolved. Plan Plan of Care Continue supportive care Status post plasma June 19 on Remdesivir June 19 On steroids. Follow up labs and cultures. Discussed with RN. soon to d/c home LAMONT ZIMMERMAN MD Jun 23, 2020 10:49
[2020-06-23 11:20] VITALS: BP 122/72
--- NOTE | 2020-06-23 12:03 | PDOC ---
PULMONARY PROGRESS NOTES DATE: 06/23/20 TIME: 12:00 Subjective Denies any shortness of breath or cough, feeling much better today A-febrile overnight No concerns from nursing Vitals Vital Signs Date Time Temp Pulse Resp B/P (MAP) Pulse Ox O2 Delivery O2 Flow Rate FiO2 06/23/20 07:10 98.3 68 24 115/68 (84) Nasal Cannula 2.0 98.3 06/22/20 15:05 93 Comments Pt. seen during , visual exam preformed on N/C A&0 X3 no rash, no Edema RRR No accessory muscle use ROS: No Nausea, No Chest Pain, No Abdominal Pain, No Increase Cough Labs Laboratory Tests Test 06/21/20 16:18 06/21/20 19:48 06/22/20 07:35 06/22/20 10:21 Glucose (Fingerstick) 253 mg/dL (70-99) 292 mg/dL (70-99) 124 mg/dL (70-99) 166 mg/dL (70-99) Test 06/22/20 16:19 06/22/20 21:17 06/23/20 04:25 06/23/20 07:20 Glucose (Fingerstick) 271 mg/dL (70-99) 218 mg/dL (70-99) 106 mg/dL (70-99) White Blood Count 5.9 x10^3/uL (4.0-11.0) Red Blood Count 4.54 x10^6/uL (4.30-5.70) Hemoglobin 14.2 g/dL (13.0-17.5) Hematocrit 40.3 % (39.0-53.0) Mean Corpuscular Volume 89 fL (79-100) Mean Corpuscular Hemoglobin 31 pg (25-35) Mean Corpuscular Hemoglobin Concent 35 g/dL (31-37) Red Cell Distribution Width 12.6 % (11.5-14.5) Platelet Count 215 x10^3/uL (140-400) Neutrophils (%) (Auto) 58 % (31-73) Lymphocytes (%) (Auto) 34 % (24-48) Monocytes (%) (Auto) 8 % (0-9) Eosinophils (%) (Auto) 0 % (0-3) Basophils (%) (Auto) 1 % (0-3) Neutrophils # (Auto) 3.4 x10^3/uL (1.8-7.7) Lymphocytes # (Auto) 2.0 x10^3/uL (1.0-4.8) Monocytes # (Auto) 0.4 x10^3/uL (0.0-1.1) Eosinophils # (Auto) 0.0 x10^3/uL (0.0-0.7) Basophils # (Auto) 0.0 x10^3/uL (0.0-0.2) D-Dimer (Jessy) 0.32 ug/mlFEU (0.00-0.50) Sodium Level 139 mmol/L (136-145) Potassium Level 3.2 mmol/L (3.5-5.1) Chloride Level 103 mmol/L (98-107) Carbon Dioxide Level 27 mmol/L (21-32) Anion Gap 9 (6-14) Blood Urea Nitrogen 16 mg/dL (8-26) Creatinine 0.8 mg/dL (0.7-1.3) Estimated GFR (Cockcroft-Gault) 101.9 Glucose Level 124 mg/dL (70-99) Calcium Level 8.4 mg/dL (8.5-10.1) Magnesium Level 2.2 mg/dL (1.8-2.4) Ferritin 692 ng/mL (26-388) Lactate Dehydrogenase 180 U/L (85-227) Creatine Kinase 38 U/L (39-308) RE-Ner-X-Type Natriuretic Peptide 148 pg/mL (0-124) Test 06/23/20 11:10 Glucose (Fingerstick) 171 mg/dL (70-99) Laboratory Tests Test 06/22/20 16:19 06/22/20 21:17 06/23/20 04:25 06/23/20 07:20 Glucose (Fingerstick) 271 mg/dL (70-99) 218 mg/dL (70-99) 106 mg/dL (70-99) White Blood Count 5.9 x10^3/uL (4.0-11.0) Red Blood Count 4.54 x10^6/uL (4.30-5.70) Hemoglobin 14.2 g/dL (13.0-17.5) Hematocrit 40.3 % (39.0-53.0) Mean Corpuscular Volume 89 fL (79-100) Mean Corpuscular Hemoglobin 31 pg (25-35) Mean Corpuscular Hemoglobin Concent 35 g/dL (31-37) Red Cell Distribution Width 12.6 % (11.5-14.5) Platelet Count 215 x10^3/uL (140-400) Neutrophils (%) (Auto) 58 % (31-73) Lymphocytes (%) (Auto) 34 % (24-48) Monocytes (%) (Auto) 8 % (0-9) Eosinophils (%) (Auto) 0 % (0-3) Basophils (%) (Auto) 1 % (0-3) Neutrophils # (Auto) 3.4 x10^3/uL (1.8-7.7) Lymphocytes # (Auto) 2.0 x10^3/uL (1.0-4.8) Monocytes # (Auto) 0.4 x10^3/uL (0.0-1.1) Eosinophils # (Auto) 0.0 x10^3/uL (0.0-0.7) Basophils # (Auto) 0.0 x10^3/uL (0.0-0.2) D-Dimer (Jessy) 0.32 ug/mlFEU (0.00-0.50) Sodium Level 139 mmol/L (136-145) Potassium Level 3.2 mmol/L (3.5-5.1) Chloride Level 103 mmol/L (98-107) Carbon Dioxide Level 27 mmol/L (21-32) Anion Gap 9 (6-14) Blood Urea Nitrogen 16 mg/dL (8-26) Creatinine 0.8 mg/dL (0.7-1.3) Estimated GFR (Cockcroft-Gault) 101.9 Glucose Level 124 mg/dL (70-99) Calcium Level 8.4 mg/dL (8.5-10.1) Magnesium Level 2.2 mg/dL (1.8-2.4) Ferritin 692 ng/mL (26-388) Lactate Dehydrogenase 180 U/L (85-227) Creatine Kinase 38 U/L (39-308) NR-Xre-A-Type Natriuretic Peptide 148 pg/mL (0-124) Test 06/23/20 11:10 Glucose (Fingerstick) 171 mg/dL (70-99) Medications Active Scripts Medications Dose Route/Sig Max Daily Dose Days Date Category Metformin Hcl 500 Mg Tablet 500 Mg PO BIDWMEALS 06/19/20 Reported Impression . IMPRESSION: 1. COVID-19 viral pneumonia. 2. Type 2 diabetes. 3. Acute hypoxemic respiratory failure--resolved Plan . Pt. continues to clinically improve, now on room air Continue supplemental oxygen to keep sats above 92% S/P Convalescent serum and Remdesivir off ABX taper steroids, full ten day course DVT/GI PPX:pepcid lovenox Ok to D/C home from our standpoint D/W ANNE ZEPEDA MD Jun 23, 2020 12:03
[2020-06-23 15:10] VITALS: BP 138/80
--- NOTE | 2020-06-23 15:48 | PDOC ---
[employer] PROGRESS NOTE Date of Service DOS: DATE: 06/23/20 TIME: 15:46 Chief Complaint Chief Complaint Acute hypoxic respiratory failure COVID positive pneumonia Hypomagnesemia Admit to medicine for further management Continue IV empiric antibiotics ID consult Appreciate pulmonology recommendationscontinue with steroids, plasma, Remdesivir Continue IV steroids We will follow math+ protocol for COVID Lovenox for DVT prophylaxis ADA diet Full code Discussed with RN and SW Disposition inpatient care as above and anticipate discharge within the next 24 to 48 hours Surrogate decision maker is History of Present Illness History of Present Illness 50-year-old male with past medical history of diabetes mellitus who presents with a one-week history of COVID infection that was positive from [facility] last Monday on 06/12/2020. Patient went to [facility] to be evaluated because in the last few days where he remained quarantined he was becoming more lethargic and short of breath. Patient was concerned because he did not have any medical equipment to measure his oxygen saturation therefore he decided to go to the emergency room. After he was evaluated at [place], he was told he was going to be transferred to [facility] because they did not have a COVID unit there. Review of the chart showed that the patient did have labs drawn and CT imaging done. Labs did show elevated d- dimer and a CT scan showing multifocal consolidation concerning for pneumonia versus typical COVID pneumonia presentation. Patient seen and examined bedside upon arrival and he was saturating 94% on 2 L nasal cannula. Patient was not having any shortness of breath or accessory muscle use during my interview. Denies chest pain, abdominal pain, bloody stools, or constipation. Patient did endorse some diarrhea that has resolved a few days ago. Patient also endorses that he did have COVID contact with his sister who was actually recently admitted at [facility] for COVID. 06/20/2020 No acute events overnight. Patient seen and examined bedside. Patient currently saturating 95% on 2 L nasal cannula. No complaints voiced at this time. Patient's chart, labs, images were reviewed and discussed with RN 06/21/2020 No acute events overnight. Patient seen and examined bedside. Patient is currently saturating 93 to 95% on room air. Patient feels better and has bit more energy. No respiratory symptoms at this time. Follow-up 06/22/2020 Patient seen and examined at bedside. No acute events overnight. He is breathing comfortably on 2 L nasal cannula. Continuing Remdesivir for COVID-19. Discussed with RN. 06/23/2020 Patient seen and examined at bedside. No acute events overnight. He is breathing comfortably on room air. He completed a 6-minute walk without any evidence of oxygen requirement. He is currently stable for discharge. Discussed self isolating at home wearing a mask if he needs to go out but maintain social distance. Patient conveyed understanding. Vitals/I&O Vitals/I&O: Vital Signs Date Time Temp Pulse Resp B/P (MAP) Pulse Ox O2 Delivery O2 Flow Rate FiO2 06/23/20 15:10 97.8 79 18 138/80 (99) Nasal Cannula 2.0 97.8 06/22/20 15:05 93 I & O 06/22/20 06/22/20 06/23/20 15:00 23:00 07:00 Intake Total 750 ml 451 ml 51 ml Output Total 1400 ml 1600 ml 600 ml Balance -650 ml -1149 ml -549 ml Physical Exam Physical Exam: General: Alert, Oriented X3 Heart: Regular rate Lungs: Clear Abdomen: Soft Extremities: No cyanosis, Normal pulses Skin: No rashes Labs Labs: Laboratory Tests Test 06/22/20 16:19 06/22/20 21:17 06/23/20 04:25 06/23/20 07:20 Glucose (Fingerstick) 271 mg/dL (70-99) 218 mg/dL (70-99) 106 mg/dL (70-99) White Blood Count 5.9 x10^3/uL (4.0-11.0) Red Blood Count 4.54 x10^6/uL (4.30-5.70) Hemoglobin 14.2 g/dL (13.0-17.5) Hematocrit 40.3 % (39.0-53.0) Mean Corpuscular Volume 89 fL (79-100) Mean Corpuscular Hemoglobin 31 pg (25-35) Mean Corpuscular Hemoglobin Concent 35 g/dL (31-37) Red Cell Distribution Width 12.6 % (11.5-14.5) Platelet Count 215 x10^3/uL (140-400) Neutrophils (%) (Auto) 58 % (31-73) Lymphocytes (%) (Auto) 34 % (24-48) Monocytes (%) (Auto) 8 % (0-9) Eosinophils (%) (Auto) 0 % (0-3) Basophils (%) (Auto) 1 % (0-3) Neutrophils # (Auto) 3.4 x10^3/uL (1.8-7.7) Lymphocytes # (Auto) 2.0 x10^3/uL (1.0-4.8) Monocytes # (Auto) 0.4 x10^3/uL (0.0-1.1) Eosinophils # (Auto) 0.0 x10^3/uL (0.0-0.7) Basophils # (Auto) 0.0 x10^3/uL (0.0-0.2) D-Dimer (Jessy) 0.32 ug/mlFEU (0.00-0.50) Sodium Level 139 mmol/L (136-145) Potassium Level 3.2 mmol/L (3.5-5.1) Chloride Level 103 mmol/L (98-107) Carbon Dioxide Level 27 mmol/L (21-32) Anion Gap 9 (6-14) Blood Urea Nitrogen 16 mg/dL (8-26) Creatinine 0.8 mg/dL (0.7-1.3) Estimated GFR (Cockcroft-Gault) 101.9 Glucose Level 124 mg/dL (70-99) Calcium Level 8.4 mg/dL (8.5-10.1) Magnesium Level 2.2 mg/dL (1.8-2.4) Ferritin 692 ng/mL (26-388) Lactate Dehydrogenase 180 U/L (85-227) Creatine Kinase 38 U/L (39-308) BV-Ipl-Z-Type Natriuretic Peptide 148 pg/mL (0-124) Test 06/23/20 11:10 Glucose (Fingerstick) 171 mg/dL (70-99) Review of Systems Review of Systems: Denies chest pain, denies shortness of breath, denies fever. Assessment and Plan Problems: (1) Respiratory failure with hypoxia (2) COVID-19 Comment Review of Relevant I have reviewed the following items alyson (where applicable) has been applied. Justifications for Admission Other Justification JACKELYN STARKEY MD Jun 23, 2020 15:48
[2020-06-23] MEDS ORDERED: PRED20TA PO (15:54)
--- NOTE | 2020-06-23 15:57 | PDOC3 ---
Discharge Summary Visit Information Date of Admission: Jun 19, 2020 Date of Discharge: Jun 23, 2020 Brief Hospital Course Allergies Allergies Coded Allergies Type Severity Reaction Last Updated Verified No Known Allergies Allergy Unknown 06/19/20 Yes Vital Signs Vital Signs Date Time Temp Pulse Resp B/P (MAP) Pulse Ox O2 Delivery O2 Flow Rate FiO2 06/23/20 15:10 97.8 79 18 138/80 (99) Nasal Cannula 2.0 97.8 06/22/20 15:05 93 Lab Results Laboratory Tests Test 06/21/20 16:18 06/21/20 19:48 06/22/20 07:35 06/22/20 10:21 Glucose (Fingerstick) 253 mg/dL (70-99) 292 mg/dL (70-99) 124 mg/dL (70-99) 166 mg/dL (70-99) Test 06/22/20 16:19 06/22/20 21:17 06/23/20 04:25 06/23/20 07:20 Glucose (Fingerstick) 271 mg/dL (70-99) 218 mg/dL (70-99) 106 mg/dL (70-99) White Blood Count 5.9 x10^3/uL (4.0-11.0) Red Blood Count 4.54 x10^6/uL (4.30-5.70) Hemoglobin 14.2 g/dL (13.0-17.5) Hematocrit 40.3 % (39.0-53.0) Mean Corpuscular Volume 89 fL (79-100) Mean Corpuscular Hemoglobin 31 pg (25-35) Mean Corpuscular Hemoglobin Concent 35 g/dL (31-37) Red Cell Distribution Width 12.6 % (11.5-14.5) Platelet Count 215 x10^3/uL (140-400) Neutrophils (%) (Auto) 58 % (31-73) Lymphocytes (%) (Auto) 34 % (24-48) Monocytes (%) (Auto) 8 % (0-9) Eosinophils (%) (Auto) 0 % (0-3) Basophils (%) (Auto) 1 % (0-3) Neutrophils # (Auto) 3.4 x10^3/uL (1.8-7.7) Lymphocytes # (Auto) 2.0 x10^3/uL (1.0-4.8) Monocytes # (Auto) 0.4 x10^3/uL (0.0-1.1) Eosinophils # (Auto) 0.0 x10^3/uL (0.0-0.7) Basophils # (Auto) 0.0 x10^3/uL (0.0-0.2) D-Dimer (Jessy) 0.32 ug/mlFEU (0.00-0.50) Sodium Level 139 mmol/L (136-145) Potassium Level 3.2 mmol/L (3.5-5.1) Chloride Level 103 mmol/L (98-107) Carbon Dioxide Level 27 mmol/L (21-32) Anion Gap 9 (6-14) Blood Urea Nitrogen 16 mg/dL (8-26) Creatinine 0.8 mg/dL (0.7-1.3) Estimated GFR (Cockcroft-Gault) 101.9 Glucose Level 124 mg/dL (70-99) Calcium Level 8.4 mg/dL (8.5-10.1) Magnesium Level 2.2 mg/dL (1.8-2.4) Ferritin 692 ng/mL (26-388) Lactate Dehydrogenase 180 U/L (85-227) Creatine Kinase 38 U/L (39-308) AD-Vmv-N-Type Natriuretic Peptide 148 pg/mL (0-124) Test 06/23/20 11:10 Glucose (Fingerstick) 171 mg/dL (70-99) Laboratory Tests Test 06/22/20 16:19 06/22/20 21:17 06/23/20 04:25 06/23/20 07:20 Glucose (Fingerstick) 271 mg/dL (70-99) 218 mg/dL (70-99) 106 mg/dL (70-99) White Blood Count 5.9 x10^3/uL (4.0-11.0) Red Blood Count 4.54 x10^6/uL (4.30-5.70) Hemoglobin 14.2 g/dL (13.0-17.5) Hematocrit 40.3 % (39.0-53.0) Mean Corpuscular Volume 89 fL (79-100) Mean Corpuscular Hemoglobin 31 pg (25-35) Mean Corpuscular Hemoglobin Concent 35 g/dL (31-37) Red Cell Distribution Width 12.6 % (11.5-14.5) Platelet Count 215 x10^3/uL (140-400) Neutrophils (%) (Auto) 58 % (31-73) Lymphocytes (%) (Auto) 34 % (24-48) Monocytes (%) (Auto) 8 % (0-9) Eosinophils (%) (Auto) 0 % (0-3) Basophils (%) (Auto) 1 % (0-3) Neutrophils # (Auto) 3.4 x10^3/uL (1.8-7.7) Lymphocytes # (Auto) 2.0 x10^3/uL (1.0-4.8) Monocytes # (Auto) 0.4 x10^3/uL (0.0-1.1) Eosinophils # (Auto) 0.0 x10^3/uL (0.0-0.7) Basophils # (Auto) 0.0 x10^3/uL (0.0-0.2) D-Dimer (Jessy) 0.32 ug/mlFEU (0.00-0.50) Sodium Level 139 mmol/L (136-145) Potassium Level 3.2 mmol/L (3.5-5.1) Chloride Level 103 mmol/L (98-107) Carbon Dioxide Level 27 mmol/L (21-32) Anion Gap 9 (6-14) Blood Urea Nitrogen 16 mg/dL (8-26) Creatinine 0.8 mg/dL (0.7-1.3) Estimated GFR (Cockcroft-Gault) 101.9 Glucose Level 124 mg/dL (70-99) Calcium Level 8.4 mg/dL (8.5-10.1) Magnesium Level 2.2 mg/dL (1.8-2.4) Ferritin 692 ng/mL (26-388) Lactate Dehydrogenase 180 U/L (85-227) Creatine Kinase 38 U/L (39-308) TN-Rne-B-Type Natriuretic Peptide 148 pg/mL (0-124) Test 06/23/20 11:10 Glucose (Fingerstick) 171 mg/dL (70-99) Brief Hospital Course Mr. Spears is a 50 old male who presented with acute respiratory failure with hypoxia and COVID-19. Consultations were placed to pulmonology. He was treated with steroids, Remdesivir, vitamin C, and oxygen support. His symptoms improved, and he had a 6-minute walk without any oxygen requirement. He was stable for discharge with a short steroid taper. Discussed self-isolation until his symptoms resolve, and social distancing with mask when if he needs to leave his home. Discharge Information Condition at Discharge: Improved Follow Up: Weeks Disposition/Orders: D/C to Home Scheduled Metformin Hcl (Metformin Hcl) 500 Mg Tablet, 500 MG PO BIDWMEALS for ANTI- DIABETIC, Ref 0 (Reported) Entered as Reported by: Veronica Garcia on 06/19/20250 Last Action: New Order on 06/19/20250 by Veronica Garcia Prednisone (Prednisone) 20 Mg Tablet, 1 TAB PO DAILY for COVID-19 for 5 Days, #5 Prescribed by: JACKELYN STARKEY MD on 06/23/20 1554 Justicifation of Admission Dx: Justifications for Admission: Justification of Admission Dx: Yes Respiratory Failure: Severe Resp Distress JACKELYN STARKEY MD Jun 23, 2020 15:57
--- NOTE | 2020-06-23 16:00 | NUR ---
Pt educated, all belongings with patient. Escorted out via wheelchair by Lanny LYNCH to main entrance. IV discontinued and telemonitor off via this RN.
--- NOTE | 2020-06-23 16:40 | NUR ---
SW following. Spoke with RN and reviewed chart. Pt to discharge home today, self-care. 6 min walk indicated no need for home 02 at discharge. Pt to discharge home today with , room air and oral medications. No further SW needs at this time.
== END 2020-06-23 16:00 | disposition home or self-care (01) | DRG 177 ==
LOC: 6 SOUTH 01:05
PROVIDERS: ADMIT Family Medicine; ATTEND Family Medicine
PROC: XW033E5 Introduction of Remdesivir Anti-infective into Peripheral Vein, Percutaneous Approach, New Technology Group 5 (ICD-10-PCS; principal; 2020-06-19)
PROC: XW13325 Transfusion of Convalescent Plasma (Nonautologous) into Peripheral Vein, Percutaneous Approach, New Technology Group 5 (ICD-10-PCS; 2020-06-19)
DX: U07.1 COVID-19 (principal); J96.01 Acute respiratory failure with hypoxia; J12.89 Other viral pneumonia; E11.9 Type 2 diabetes mellitus without complications; E83.42 Hypomagnesemia
CPT/HCPCS: 36415; 80048; 80053; 82550; 82728; 82962; 83615; 83735; 83880; 85025; 85379; 86850; 86900; 86901; 86927; 94618; J0456; J0696; J1650; J1815; J3411; J7030; J7050; J7060; G0378; P9017